=== PATIENT | male | born 1980 | race Caucasian/White ===

== ENCOUNTER 2025-01-22 10:55 | Outpatient (CLI) | payer OTHER, SELFPAY | END 2025-01-22 10:56 | disposition home or self-care (01) | LOC: INJ CL 11:02 | PROVIDERS: PCP Physician Assistant; Visit Provider Family Medicine | DX: M54.16 Radiculopathy, lumbar region (principal); M51.369 Other intervertebral disc degeneration, lumbar region without mention of lumbar back pain or lower extremity pain | CPT/HCPCS: 62323; Q9966 ==

== ENCOUNTER 2025-06-18 07:51 | Outpatient (CLI) | payer BC, SELFPAY | END 2025-06-18 07:52 | disposition home or self-care (01) | LOC: INJ CL 07:53 | PROVIDERS: PCP Physician Assistant; Visit Provider Family Medicine | DX: M17.11 Unilateral primary osteoarthritis, right knee (principal); M25.561 Pain in right knee | CPT/HCPCS: 64454 ==